=== PATIENT | male | born 1995 | race African-American/Black ===

== ENCOUNTER 2018-05-02 23:03 | Emergency (ER) | payer OTHER ==
[2018-05-03] MEDS ORDERED: ONDANSETRON HCL INJ/PF 4 MG/2 ML SDV IV ONE (00:43)
[2018-05-03] MEDS ORDERED: NORMAL SALINE 1000 ML 1,000 ML IV ONE ×2 (00:43→01:49)
--- NOTE | 2018-05-03 00:43 | ER Document Report ---
ED Medical Screen (RME) - General Chief Complaint: Flu Symptoms Stated Complaint: FEVER Time Seen by Provider: 05/03/18 00:36 TRAVEL OUTSIDE OF THE [place] IN LAST 30 DAYS: No - HPI Notes: 05/03/18 00:37 Patient is a 22-year-old male with no significant past medical history who presents the emergency department complaining of body ache, chills, nausea, vomiting, and loose stool that began at 3 PM today. he also noted a fever of 102H at home. Patient states that he last vomited about 1-2 hours ago. He is urinating normally. Patient states that his stool consistency was formed, but loose. Patient states that he has had some mid to left lower abdominal pain is described as sharp does not radiate. Patient states that pain has mostly been tolerable and mild otherwise. Denies any headache, neck pain, URI, sore throat, chest pain, palpitations, syncope, cough, shortness of breath, wheeze, dyspnea, urinary retention, dysuria, hematuria, or rash. I have treated and performed a rapid initial assessment of this patient. A comprehensive ED assessment and evaluation of the patient, analysis of test results and completion of medical decision making process will be conducted by additional ED providers. PHYSICAL EXAMINATION: GENERAL: Well-appearing, well-nourished and in no acute distress. A&Ox4. Answers questions appropriately. LUNGS: Breath sounds clear to auscultation bilaterally and equal. No wheezes rales or rhonchi. HEART: Regular rate and rhythm without murmurs, rubs, gallops. ABDOMEN: Soft, nondistended abdomen. No guarding, no rebound. Normal bowel sounds present. No CVA tenderness bilaterally. + mild mid/lower left abd tenderness. No tenderness at [place]. [place] neg. Extremities: No cyanosis, clubbing, or edema b/l. NEUROLOGICAL: Normal speech, normal gait. PSYCH: Normal mood, normal affect. - Related Data Allergies/Adverse Reactions: No Known Allergies Allergy (Unverified 05/02/18 23:04) Physical Exam - Vital signs Vitals: Temp Pulse Resp BP Pulse Ox 99.5 F 85 18 152/80 H 97 05/02/18 23:08 05/02/18 23:08 05/02/18 23:08 05/02/18 23:08 05/02/18 23:08 Course - Vital Signs Vital signs: Temp Pulse Resp BP Pulse Ox 99.5 F 85 18 152/80 H 97 05/02/18 23:08 05/02/18 23:08 05/02/18 23:08 05/02/18 23:08 05/02/18 23:08
[2018-05-03 01:18] LABS: HEMATOCRIT 44.6 % (37.9-51.0); HEMOGLOBIN 15.4 g/dL (13.5-17.0); MEAN CORPUSCULAR HEMOGLOBIN 29.8 pg (27.0-33.4); MEAN CORPUSCULAR HGB CONC 34.6 g/dL (32.0-36.0); MEAN CORPUSCULAR VOLUME 86 fl (80-97); PLATELET COUNT 260 10^3/uL (150-450); RED BLOOD COUNT 5.17 10^6/uL (4.35-5.55); RED CELL DISTRIBUTION WIDTH 12.8 % (11.5-14.0); WHITE BLOOD COUNT 7.6 10^3/uL (4.0-10.5)
[2018-05-03 01:34] LABS: ALANINE AMINOTRANSFERASE 27 U/L (21-72); ALBUMIN 5.1 g/dL (3.5-5.0); ALKALINE PHOSPHATASE 75 U/L (38-126); ANION GAP 9 (5-19); ASPARTATE AMINO TRANSFERASE 30 U/L (17-59); BILIRUBIN,DIRECT 0.1 mg/dL (0.0-0.4); BILIRUBIN,TOTAL 1.5 mg/dL (0.2-1.3); BLOOD UREA NITROGEN 15 mg/dL (7-20); CALCIUM 10.1 mg/dL (8.4-10.2); CARBON DIOXIDE 28 mmol/L (22-30); CHLORIDE 103 mmol/L (98-107); GLUCOSE 106 mg/dL (75-110); LIPASE 195.6 U/L (23-300); POTASSIUM 4.3 mmol/L (3.6-5.0); SODIUM 140.4 mmol/L (137-145); TOTAL PROTEIN 8.7 g/dL (6.3-8.2)
[2018-05-03 01:41] LABS: ABSOLUTE LYMPHOCYTES# (MANUAL) 0.5 10^3/uL (0.5-4.7); ABSOLUTE MONOCYTES # (MANUAL) 0.2 10^3/uL (0.1-1.4); ABSOLUTE NEUTROPHILS# (MANUAL) 6.8 10^3/uL (1.7-8.2); BASOPHILS % (MANUAL) 0 % (0-2); EOSINOPHILS % (MANUAL) 0 % (0-6); LYMPHOCYTES % (MANUAL) 6 % (13-45); MONOCYTES % (MANUAL) 3 % (3-13); SEGMENTED NEUTROPHILS % (MAN) 90 % (42-78); TOTAL CELLS COUNTED 100
[2018-05-03 01:42] LABS: PLATELET COMMENT ADEQUATE; RBC MORPHOLOGY COMMENT NORMO-CYTIC/CHROMIC; TOXIC VACUOLATION PRESENT
[2018-05-03 01:45] LABS: APPEARANCE,URINE SLIGHTLY-CLOUDY; BILIRUBIN,URINE NEGATIVE (NEGATIVE); COLOR,URINE AMBER; GLUCOSE, URINE NEGATIVE (NEGATIVE); KETONES,URINE NEGATIVE (NEGATIVE); LEUKOCYTE ESTERASE,URINE NEGATIVE (NEGATIVE); NITRITE,URINE NEGATIVE (NEGATIVE); PROTEIN,URINE NEGATIVE (NEGATIVE); URINE SPECIFIC GRAVITY 1.031; UROBILINOGEN,URINE NEGATIVE mg/dL (<2.0)
[2018-05-03 02:48] VITALS: BP 132/60
[2018-05-03] MEDS ORDERED: ONDANSETRON ODT 4 MG TAB (6 TAB/ER DISP) PO PRN (02:55)
[2018-05-03] MEDS ORDERED: ACETAMINOPHEN 325 MG TABLET PO ONE (02:55)
--- NOTE | 2018-05-03 02:58 | ER Document Report ---
ED General - General Chief Complaint: Flu Symptoms Stated Complaint: FEVER Time Seen by Provider: 05/03/18 00:36 Notes: Patient is a 22-year-old male who presents the emergency department complaining of body aches, chills, nausea, vomiting, and diarrhea that started at 1500. He had a fever of 102 at home. The patient denies any hematemesis. He did receive zofran prior to my assessment and he states he feels better. He still has not finished his fluid at this time. His left lower quadrand has a had a sharp pain. It is mild and does not radiate. He denies any penile discharge or dysuria. TRAVEL OUTSIDE OF THE [place] IN LAST 30 DAYS: No - Related Data Allergies/Adverse Reactions: No Known Allergies Allergy (Unverified 05/02/18 23:04) Past Medical History - Social History Smoking Status: Never Smoker Chew tobacco use (# tins/day): No Frequency of alcohol use: None Drug Abuse: None Family History: Reviewed & Not Pertinent Patient has suicidal ideation: No Patient has homicidal ideation: No Renal/ Medical History: Denies: Hx Peritoneal Dialysis Review of Systems - Review of Systems Notes: REVIEW OF SYSTEMS: CONSTITUTIONAL : See HPI EENT: Denies eye, ear, throat, or mouth pain, discharge, or symptoms. Denies nasal or sinus congestion. CARDIOVASCULAR: Denies chest pain. RESPIRATORY: Denies shortness of breath, cough, congestion, difficulty breathing, or wheezing. GASTROINTESTINAL: See HPI GENITOURINARY: Denies difficulty urinating, burning, blood in urine, urgency or frequency. MUSCULOSKELETAL: Denies neck and back pain. Denies joint pain or swelling. SKIN: Denies rash, itchiness, or lesions HEMATOLOGIC : Denies easy bruising or bleeding. LYMPHATIC: Denies swollen, painful, enlarged glands. NEUROLOGICAL: Denies no numbness or tingling denies weakness. Denies headache. Denies altered mental status. Denies alteration in speech. PSYCHIATRIC: Denies stress, anxiety, alteration in sleep patterns, or depression. All other systems reviewed and negative. Physical Exam - Vital signs Vitals: Temp Pulse Resp BP Pulse Ox 99.5 F 85 18 152/80 H 97 05/02/18 23:08 05/02/18 23:08 05/02/18 23:08 05/02/18 23:08 05/02/18 23:08 - Notes Notes: PHYSICAL EXAMINATION: GENERAL: Appears well, healthy, well-nourished, no acute distress. HEAD: Normocephalic, atraumatic. EYES: PERRL, conjunctiva normal, all extraocular movements intact, sclera nonicteric ENT: Moist mucous membranes. NECK: Supple, no noticeable swelling, redness, rash. Normal range of motion. LUNGS: Equal breath sounds bilaterally and clear to auscultation. No wheezes rales or rhonchi. CARDIOVASCULAR: S1-S2, regular rate, regular rhythm. Radial pulses 2+, normal. ABDOMEN: Normoactive bowel sounds. Soft, tender low mid abdomen, no guarding, no rebound tenderness, and no masses palpated. EXTREMITIES: Normal strength and range of motion, no pitting or edema. No cyanosis. NEUROLOGICAL: Moves all extremities upon command. Strength 5/5 in all extremities. PSYCH: Normal mood, normal affect. SKIN: Warm, dry. No rash, lesions, ulcerations noted. Normal skin turgor. Course - Re-evaluation Re-evalutation: 05/03/18 The patient's labs are grossly unremarkable. He states he feels better after receiving zofran and IV fluids. I do not suspect the patient has appendicitis, bowel obstruction, or any life threatening etiology at this time. HE will be given zofran for home. A CT of the abdomen is not indicated at this time. Rock colon discharge instructions were given to the patient, they verbalized understanding, They are stable for discharge. - Vital Signs Vital signs: Temp Pulse Resp BP Pulse Ox 98.5 F 64 16 132/60 H 98 05/03/18 02:47 05/03/18 02:47 05/03/18 02:47 05/03/18 02:47 05/03/18 02:47 - Laboratory Result Diagrams: 05/03/18 00:45 05/03/18 00:45 Laboratory results interpreted by me: 05/03/18 05/03/18 00:45 00:45 Seg Neuts % (Manual) 90 H Lymphocytes % (Manual) 6 L Total Bilirubin 1.5 H Total Protein 8.7 H Albumin 5.1 H Discharge - Discharge Clinical Impression: Body aches Condition: Stable Disposition: HOME, SELF-CARE Additional Instructions: You were seen today in the emergency department for body aches, chills, vomiting, and fever. You have been given Zofran, medication for nausea and vomiting. You can take 1 tablet every 4-6 hours as needed. You can take Tylenol 1000 mg every 6 hours as needed for your body aches and fever. Please follow-up with your primary care provider in regards to this visit. If you have worsening symptoms, continue to have a fever greater than 100.4 F while on Tylenol, develop chest pain, any symptoms that are worrisome to you, please return to the emergency department. Forms: Return to Work
== END 2018-05-03 03:12 | disposition home or self-care (01) ==
LOC: ER 23:03
DX: M79.10 Myalgia, unspecified site (principal); R50.9 Fever, unspecified; R11.2 Nausea with vomiting, unspecified; R19.7 Diarrhea, unspecified
CPT/HCPCS: 99283; 96361; 96374; 36415; 83690; 85025; 80053; 81001; J2405; J7030

== ENCOUNTER 2018-08-15 15:29 | Emergency (ER) | payer OTHER ==
[2018-08-15] MEDS ORDERED: MAG HYDROX/AL HYDROX/SIMETH SUSP 30 ML UDCUP PO ONE (17:58)
[2018-08-15] MEDS ORDERED: LIDOCAINE 2% VISCOUS SOLN 20 ML UDCUP PO ONE (17:58)
[2018-08-15] MEDS ORDERED: METOCLOPRAMIDE HCL ORAL SOLN 10 MG/10 ML UDCUP PO ONE (17:58)
--- NOTE | 2018-08-15 19:05 | ER Document Report ---
HPI - HPI Time Seen by Provider: 08/15/18 17:28 Pain Level: 4 Notes: Patient is an otherwise healthy 22-year-old male presented to the emergency department with a full feeling in his throat and esophagus area. He reports this is intermittent and feels like a tight or full feeling. He denies taking any medications for his symptoms. He states his symptoms have been going on for quite some time with worsening over the last few days. Patient denies any nausea, vomiting, diarrhea or fevers. - CONSTITUTIONAL Constitutional: DENIES: Fever, Chills - EENT EENT: REPORTS: Sore Throat Past Medical History - General Information source: Patient - Social History Smoking Status: Never Smoker Chew tobacco use (# tins/day): No Frequency of alcohol use: None Drug Abuse: None Family History: Reviewed & Not Pertinent Patient has suicidal ideation: No Patient has homicidal ideation: No - Medical History Medical History: Negative Renal/ Medical History: Denies: Hx Peritoneal Dialysis Surgical Hx: Negative - Immunizations Immunizations up to date: Yes Vertical Provider Document - CONSTITUTIONAL Notes: PHYSICAL EXAMINATION: GENERAL: Well-appearing, well-nourished and in no acute distress. HEAD: Atraumatic, normocephalic. EYES: Pupils equal round extraocular movements intact, conjunctiva are normal. ENT: Nares patent NECK: Normal range of motion LUNGS: No respiratory distress Musculoskeletal: Normal range of motion NEUROLOGICAL: Normal speech, normal gait. PSYCH: Normal mood, normal affect. SKIN: Warm, Dry, normal turgor, no rashes or lesions noted. - INFECTION CONTROL TRAVEL OUTSIDE OF THE [place] IN LAST 30 DAYS: No Course - Re-evaluation Re-evalutation: Patient appears well, nontoxic, vital signs are all within normal limits. Patient has no chest pain or shortness of breath. Patient reports complete resolution of his pain after administration of GI cocktail. Patient will be discharged home in stable condition. Patient will be encouraged to take Pepcid twice daily. If symptoms not significantly improving patient will be encouraged to follow-up with primary care or gastroenterology. Patient verbalizes understanding and agreement with this plan. - Vital Signs Vital signs: Temp Pulse Resp BP Pulse Ox 98.5 F 54 L 16 142/80 H 98 08/15/18 15:37 08/15/18 15:37 08/15/18 15:37 08/15/18 15:37 08/15/18 15:37 Discharge - Discharge Clinical Impression: Esophagitis Condition: Stable Disposition: HOME, SELF-CARE Additional Instructions: Esophageal Spasm Your diagnosis is esophageal spasm. This is tightness of the muscles of the esophagus. It causes symptoms such as chest pain or food "sticking." It's more common in persons with a hiatal hernia. Esophageal spasms can occur due to nerve damage (neuropathy), acid reflux, inherited esophageal conditions, or just due to old age. Often we x-ray the esophagus to look for ulcers, inflammation, reflux, or tumors. Usually, antacids or acid-suppressing medicines are used to control possible esophagitis (inflammation of the esophagus due to acid). Nitroglycerin can relax the esophagus when spasms occur. Avoid alcohol, aspirin, caffeine, tobacco, and foods that cause heartburn (such as chocolate). Elevate the head of your bed about four inches. Call the doctor if you develop severe chest pain, inability to swallow fluids, fever, or worsening symptoms. Try taking Pepcid 20 mg in the morning and 20 mg in the evening. You can buy this [id number]. If your symptoms do not resolve you may consider following up with a obstetrics and gynecology professor who can go down with a scope and look at the area. I have included their contact information below. Return to the emergency department for any warning signs as outlined above. Forms: Return to Work Referrals: AUSTIN MOTA MD [ACTIVE STAFF] - Follow up as needed RICHELLE MCCLAIN MD [EMERITUS] - Follow up as needed
[2018-08-15 19:15] VITALS: BP 135/80
== END 2018-08-15 19:15 | disposition home or self-care (01) ==
LOC: ER 15:29
DX: K20.9 Esophagitis, unspecified (principal); J02.9 Acute pharyngitis, unspecified
CPT/HCPCS: 99283; 87070; 87880; J3490